=== PATIENT | male | born 1990 | race Caucasian/White ===

== ENCOUNTER 2018-01-20 12:47 | Emergency (ER) | payer MEDICAID, SELFPAY ==
[~2018-01-20] VITALS: Ht 165.1 cm; Wt 54.2 kg
[2018-01-20 13:19] LABS: BASOPHILS # (AUTO) 0.1 X10'3 (0-0.2); BASOPHILS % (AUTO) 0.7 % (0-1); EOSINOPHILS # (AUTO) 0.3 X10'3 (0-0.9); EOSINOPHILS % (AUTO) 3.6 % (0-6); LYMPHOCYTES # (AUTO) 1.8 X10'3 (1.1-4.8); LYMPHOCYTES % (AUTO) 24.3 % (21-51); MEAN CORPUSCULAR HEMOGLOBIN 31.3 PG (27.0-31.0); MEAN CORPUSCULAR HGB CONC 34.1 % (33.0-36.5); MEAN CORPUSCULAR VOLUME 91.8 FL (78-98); MEAN PLATELET VOLUME 7.7 FL (7.4-10.4); MONOCYTES # (AUTO) 0.6 X10'3 (0-0.9); MONOCYTES % (AUTO) 7.9 % (2-12); NEUTROPHILS # (AUTO) 4.8 X10'3 (1.8-7.7); NEUTROPHILS % (AUTO) 63.5 % (42-75); PLATELET COUNT 211 X10'3 (140-440); RED BLOOD COUNT 4.79 X10'6 (4.70-6.10); RED CELL DISTRIBUTION WIDTH 13.7 % (11.5-14.5); WHITE BLOOD COUNT 7.6 X10'3 (4.5-11.0)
[2018-01-20 13:27] LABS: PROTHROMBIN TIME 10.2 SECONDS (9.0-12.0)
[2018-01-20] MEDS ORDERED: ondansetron/PF 4mg/2ml inj IV ONE (13:30)
[2018-01-20] MEDS ORDERED: normal saline 1000ML IV soln IVB ONE (13:30)
[2018-01-20] MEDS ORDERED: morphine 4 MG/ML inj SYRINge IV PRN (13:30)
[2018-01-20] MEDS ORDERED: ketorolac trometh. 30mg/ml inj. IV ONE (13:30)
[2018-01-20 13:33] LABS: ALANINE AMINOTRANSFERASE 21 U/L (12-78); ALBUMIN 4.6 G/DL (3.4-5.0); ALBUMIN/GLOBULIN RATIO 1.6 (1.1-1.5); ALKALINE PHOSPHATASE 60 IU/L (46-116); ANION GAP 6 (8-16); ASPARTATE AMINO TRANSFERASE 13 U/L (10-37); BILIRUBIN,TOTAL 0.8 MG/DL (0.1-1.0); BLOOD UREA NITROGEN 15 MG/DL (7-18); BUN/CREATININE RATIO 14.4 (5.4-32.0); CALCIUM 9.2 MG/DL (8.5-10.1); CHLORIDE 104 MMOL/L (99-107); CREATININE 1.04 MG/DL (0.60-1.10); GLUCOSE 122 MG/DL (70-104); POTASSIUM 4.2 MMOL/L (3.5-5.1); SODIUM 140 MMOL/L (135-145); TOTAL PROTEIN 7.4 G/DL (6.4-8.2); eGFR 86 ML/MIN
[2018-01-20 13:42] LABS: CLARITY,URINE CLOUDY (Clear); COLOR,URINE RED (Yellow); GLUCOSE, URINE NEGATIVE (Neg); KETONES,URINE NEGATIVE (Neg); LEUKOCYTE ESTERASE ,URINE NEGATIVE (Neg); NITRITES, URINE NEGATIVE (Neg); OCCULT BLOOD,URINE LARGE (Neg); PH,URINE 6.5 (4.8-8.0); PROTEIN,URINE 100 mg/dl (Neg)
[2018-01-20 13:48] LABS: UA COLLECTION TYPE VOIDED
[2018-01-20 13:50] LABS: BACTERIA,URINE 1+ /HPF (Neg); RBC,URINE TNTC /HPF (0-2)
[2018-01-20 13:57] LABS: WBC,URINE 0-4 /HPF (0-4)
[2018-01-20 13:58] LABS: SQUAMOUS EPITHELIAL CELL,UR FEW /LPF (FEW)
[2018-01-20] MEDS ORDERED: HYDROcodone/acetaminophen 10/325mg tab PO ONE (14:05)
[2018-01-20] MEDS ORDERED: HYDR-565 PO (14:20)
[2018-01-20] MEDS ORDERED: IBUP-1984 PO (14:20)
[2018-01-20 14:39] VITALS: BP 107/61
== END 2018-01-20 14:41 | disposition home or self-care (01) ==
LOC: ER 12:47
DX: N23 Unspecified renal colic (principal); R31.9 Hematuria, unspecified; F12.90 Cannabis use, unspecified, uncomplicated; Z79.899 Other long term (current) drug therapy
CPT/HCPCS: 36415; 74176; 80053; 81001; 85025; 85610; 96361; 96374; 96375; 99285; J1885; J2270; J2405; J7030

== ENCOUNTER 2019-05-25 12:14 | Emergency (ER) | payer MEDICAID ==
[~2019-05-25] VITALS: Ht 165.1 cm; Wt 54.5 kg
[2019-05-25 13:58] LABS: BASOPHILS % (AUTO) 0.8 % (0-1); EOSINOPHILS # (AUTO) 0.1 X10'3 (0-0.9); EOSINOPHILS % (AUTO) 2.5 % (0-6); HEMATOCRIT 42.5 % (42.0-52.0); HEMOGLOBIN 14.5 g/dl (14.0-17.9); LYMPHOCYTES # (AUTO) 1.8 X10'3 (1.1-4.8); LYMPHOCYTES % (AUTO) 30.4 % (21-51); MEAN CORPUSCULAR HEMOGLOBIN 31.8 PG (27.0-31.0); MEAN CORPUSCULAR HGB CONC 34.1 g/dL (33.0-36.5); MEAN CORPUSCULAR VOLUME 93.2 FL (78-98); MEAN PLATELET VOLUME 7.2 FL (7.4-10.4); MONOCYTES # (AUTO) 0.4 X10'3 (0-0.9); MONOCYTES % (AUTO) 7.1 % (2-12); NEUTROPHILS # (AUTO) 3.4 X10'3 (1.8-7.7); NEUTROPHILS % (AUTO) 59.2 % (42-75); PLATELET COUNT 227 X10'3 (140-440); RED BLOOD COUNT 4.57 X10'6 (4.70-6.10); RED CELL DISTRIBUTION WIDTH 13.6 % (11.5-14.5); WHITE BLOOD COUNT 5.8 X10'3 (4.5-11.0)
[2019-05-25 14:07] LABS: CLARITY,URINE CLEAR (Clear); COLOR,URINE YELLOW (Yellow); GLUCOSE, URINE NEGATIVE (Neg); KETONES,URINE NEGATIVE (Neg); LEUKOCYTE ESTERASE ,URINE NEGATIVE (Neg); NITRITES, URINE NEGATIVE (Neg); OCCULT BLOOD,URINE NEGATIVE (Neg); PH,URINE 6.5 (4.8-8.0); PROTEIN,URINE NEGATIVE (Neg); UROBILINOGEN,URINE 0.2 E.U/dL (0.2-1.0)
[2019-05-25 14:08] LABS: UA COLLECTION TYPE CLN CATCH MIDSTREAM
[2019-05-25 14:13] LABS: ALANINE AMINOTRANSFERASE 22 U/L (12-78); ALBUMIN 4.7 G/DL (3.4-5.0); ALBUMIN/GLOBULIN RATIO 1.7 (1.1-1.5); ALKALINE PHOSPHATASE 68 IU/L (46-116); ANION GAP 8 (8-16); ASPARTATE AMINO TRANSFERASE 20 U/L (10-37); BILIRUBIN,TOTAL 0.7 MG/DL (0.1-1.0); BLOOD UREA NITROGEN 13 MG/DL (7-18); BUN/CREATININE RATIO 13.8 (5.4-32.0); CALCIUM 9.5 MG/DL (8.5-10.1); CHLORIDE 104 MMOL/L (99-107); CREATININE 0.94 MG/DL (0.60-1.10); GLUCOSE 83 MG/DL (70-104); LIPASE 123 U/L (73-393); SODIUM 141 MMOL/L (135-145); TOTAL CARBON DIOXIDE 29.4 MMOL/L (24-32); TOTAL PROTEIN 7.4 G/DL (6.4-8.2); eGFR > 90 ML/MIN
[2019-05-25] MEDS ORDERED: ketorolac tromethamine 15mg/ml inj. IV ONE (14:35)
--- NOTE | 2019-05-25 14:49 | NUR ---
ULTRASOUND AT BEDSIDE
[2019-05-25] MEDS ORDERED: IBUP-1984 PO (15:53)
[2019-05-25 16:03] VITALS: BP 111/61
== END 2019-05-25 16:05 | disposition home or self-care (01) ==
LOC: ER 12:14
DX: N23 Unspecified renal colic (principal); F12.90 Cannabis use, unspecified, uncomplicated; F10.99 Alcohol use, unspecified with unspecified alcohol-induced disorder; Z79.899 Other long term (current) drug therapy; Y90.9 Presence of alcohol in blood, level not specified
CPT/HCPCS: 36415; 76775; 80053; 81003; 83690; 85025; 96374; 99284; J1885